=== PATIENT | female | born 1950 | race Caucasian/White ===

== ENCOUNTER 2022-03-07 13:06 | Inpatient (IN) | payer MEDICAID ==
[~2022-03-07] VITALS: Ht 160 cm; Wt 60.4 kg
[2022-03-07] MEDS ORDERED: ONDANSETRON HCL 4MG/2ML INJ IV ONE (14:00)
[2022-03-07] MEDS ORDERED: MORPHINE SULFATE 4 MG/ML CPJ (NOT FOR IM USE) IV ONE (14:00)
[2022-03-07 14:23] LABS: HEMATOCRIT. 45.2 % (36.0-48.0); HEMOGLOBIN. 15.6 g/dL (12.0-16.0); MEAN CORPUSCULAR HEMOGLOBIN 32.4 pg (28.0-32.0); MEAN CORPUSCULAR VOLUME 94.1 fL (81.0-99.0); MEAN PLATELET VOLUME 9.1 fl (7.4-10.4); PLATELET 216 x1000/uL (130-400); RED BLOOD CELL COUNT 4.81 mill/uL (4.2-5.4); RED CELL DISTRIBUTION WIDTH 13.2 % (11.6-14.6)
[2022-03-07 14:36] LABS: CHLORIDE 81 mEq/L (98-107)
[2022-03-07 15:03] LABS: PLATELET ESTIMATE NORMAL
[2022-03-07] MEDS ORDERED: CEFTRIAXONE 1 G PREMIX 50 ML IV ONE (17:45)
[2022-03-07] MEDS ORDERED: DOCUSATE SODIUM 100MG CAPSULE PO PRN (19:15)
[2022-03-07] MEDS ORDERED: LORAZEPAM 0.5MG TABLET PO PRN (19:15)
[2022-03-07] MEDS ORDERED: ACETAMINOPHEN 325MG TABLET PO PRN ×2 (19:15)
[2022-03-07] MEDS ORDERED: CLONIDINE 0.1MG TABLET PO PRN (19:15)
[2022-03-07] MEDS ORDERED: IPRATROPIUM/ALBUTEROL 0.5-3(2.5)MG/3ML NEB HHN PRN (19:15)
[2022-03-07] MEDS ORDERED: NOREPINEPHRINE 8 MG in DEXT 5% WATER 242 ML IV PRN (19:15)
[2022-03-07 20:03] LABS: BG BASE EXCESS -15.7 mmol/L (-2.0-2.0); BG CARBOXYHEMOGLOBIN 0.8 % (0.5-1.5); BG DEOXYHEMOGLOBIN 5.5 % (0.0-5.0); BG FRACTION INSPIRED OXYGEN 21; BG HCO3 ACT 10.5 mmol/L (22.0-26.0); BG METHEMOGLOBIN 0.2 % (0.0-1.5); BG OXYGEN SATURATION 94.4 % (92.0-98.5); BG OXYHEMOGLOBIN 93.5 % (94.0-97.0); BG PCO2 27.1 mmHg (35.0-45.0); BG PH 7.208 (7.350-7.450); BG PO2 80.9 mmHg (75.0-100.0); BG SAMPLE SITE RIGHT RADIAL; BG TOTAL HEMOGLOBIN 14.5 g/dL (12.0-18.0); BG VENT MODE ROOM AIR
[2022-03-07] MEDS ORDERED: SODIUM BICARBONATE 8.4% 1 MEQ/ML 50ML SYR IV NR (20:45)
[2022-03-07 21:03] VITALS: BP 88/44
[2022-03-07] MEDS ORDERED: SODIUM BICARBONATE 150 MEQ in DEXTROSE 5% WATER 1,000 ML IV NR (21:45)
[2022-03-07] MEDS: ONDANSETRON HCL 4MG/2ML INJ IV PRN (22:30)
[2022-03-07] MEDS: HYDROCODONE/ACETAMINOPHEN 5/325MG TABLET PO PRN (22:30)
[2022-03-08] VITALS (61 sets, daily range): BP systolic 57–122; BP diastolic 30–92
[2022-03-08] MEDS ORDERED: losartan (02:11)
[2022-03-08] MEDS: HYDROCODONE/ACETAMINOPHEN 5/325MG TABLET PO PRN (03:53)
[2022-03-08] MEDS ORDERED: SODIUM CHLORIDE 0.9% 250 ML IV NR (04:30)
[2022-03-08] MEDS ORDERED: NOREPINEPHRINE 8 MG in DEXT 5% WATER 242 ML IV PRN (08:00)
[2022-03-08 09:47] LABS: HEMATOCRIT. 42.1 % (36.0-48.0); HEMOGLOBIN. 14.4 g/dL (12.0-16.0); MEAN CORPUSCULAR HEMOGLOBIN 32.1 pg (28.0-32.0); MEAN PLATELET VOLUME 9.4 fl (7.4-10.4); PLATELET 183 x1000/uL (130-400); RED BLOOD CELL COUNT 4.47 mill/uL (4.2-5.4); RED CELL DISTRIBUTION WIDTH 13.1 % (11.6-14.6)
[2022-03-08] MEDS ORDERED: CEFTRIAXONE 1 G PREMIX 50 ML IV SCH (10:00)
[2022-03-08] MEDS ORDERED: NOREPINEPHRINE 32 MG in DEXT 5% WATER 242 ML IV PRN (10:51)
[2022-03-08] MEDS: PIPERACILLIN/TAZOBACTAM 3.375 G in DEXTROSE 5% WATER 50 ML IV SCH (17:31)
[2022-03-08 17:50] LABS: CHLORIDE 85 mEq/L (98-107)
[2022-03-08] MEDS ORDERED: CEFTRIAXONE 1,000 MG in DEXTROSE 5% WATER 50 ML IV SCH (18:00)
[2022-03-08] MEDS ORDERED: SODIUM BICARBONATE 8.4% 1 MEQ/ML 50ML SYR IV NR (18:30)
[2022-03-08] MEDS: NOREPINEPHRINE 32 MG in DEXTROSE 5% WATER 250 ML IV PRN (21:09)
[2022-03-08] MEDS: SODIUM BICARBONATE 150 MEQ in DEXTROSE 5% WATER 1,000 ML IV SCH ×2 (21:09→23:21)
[2022-03-08 23:10] LABS: PLATELET ESTIMATE NORMAL
[2022-03-09] VITALS (97 sets, daily range): BP systolic 75–148; BP diastolic 38–116
[2022-03-09] MEDS: NOREPINEPHRINE 32 MG in DEXTROSE 5% WATER 250 ML IV PRN ×2 (05:55→20:00)
[2022-03-09 06:26] LABS: HEMATOCRIT. 36.6 % (36.0-48.0); MEAN CORPUSCULAR HEMOGLOBIN 32.2 pg (28.0-32.0); MEAN CORPUSCULAR VOLUME 90.6 fL (81.0-99.0); MEAN PLATELET VOLUME 9.4 fl (7.4-10.4); PLATELET 86 x1000/uL (130-400); RED BLOOD CELL COUNT 4.04 mill/uL (4.2-5.4); RED CELL DISTRIBUTION WIDTH 12.8 % (11.6-14.6)
[2022-03-09 07:05] LABS: CHLORIDE 77 mEq/L (98-107)
[2022-03-09 07:25] LABS: CREATINE KINASE 384 IU/L (26-192); PHOSPHORUS 5.8 mg/dL (2.5-4.9)
[2022-03-09] MEDS ORDERED: KCL 20MEQ/100ML PREMIX 100 ML IV NR ×2 (08:00→13:00)
[2022-03-09] MEDS ORDERED: SODIUM CHLORIDE 0.9% 1,000 ML IV NR (08:12)
[2022-03-09] MEDS: PIPERACILLIN/TAZOBACTAM 3.375 G in DEXTROSE 5% WATER 50 ML IV SCH ×2 (08:26→19:59)
[2022-03-09 11:12] LABS: INR 1.1; PARTIAL THROMBOPLASTIN TIME 33.5 sec (23.4-31.0); PROTHROMBIN TIME 11.4 sec (9.6-11.0)
[2022-03-09] MEDS ORDERED: LIDOCAINE HCL 1% 30ML VIAL (10MG/ML) ONE (12:48)
[2022-03-09 13:00] LABS: NUCLEATED RED BLOOD CELLS 1 /100 WBC; PLATELET ESTIMATE DECREASED
[2022-03-09] MEDS ORDERED: DIATR MEGLU/DIATRIZOATE SOLN 120ML ONE (14:11)
[2022-03-09 15:20] LABS: CLARITY URINE CLOUDY (CLEAR); COLOR URINE YELLOW (YELLOW); KETONES URINE NEGATIVE (NEGATIVE); LEUKOCYTE ESTERASE URINE NEGATIVE (NEGATIVE); NITRITE URINE NEGATIVE (NEGATIVE); OCCULT BLOOD URINE 2+ (NEGATIVE); PROTEIN URINE 2+ (NEGATIVE); SPECIFIC GRAVITY URINE 1.016 (1.005-1.030); UROBILINOGEN URINE 0.2 E.U./dL (0.2-1.0)
[2022-03-09 17:40] LABS: HEPATITIS B SURFACE ANTIGEN NEGATIVE
[2022-03-09] MEDS: ONDANSETRON HCL 4MG/2ML INJ IV PRN (20:00)
[2022-03-10] VITALS (92 sets, daily range): BP systolic 75–143; BP diastolic 33–78
[2022-03-10] MEDS: ONDANSETRON HCL 4MG/2ML INJ IV PRN ×3 (02:00→17:00)
[2022-03-10] MEDS: PIPERACILLIN/TAZOBACTAM 3.375 G in DEXTROSE 5% WATER 50 ML IV SCH (08:50)
[2022-03-10 11:19] LABS: PHOSPHORUS 5.9 mg/dL (2.5-4.9)
[2022-03-10 11:44] LABS: HEMATOCRIT. 35.7 % (36.0-48.0); HEMOGLOBIN. 12.4 g/dL (12.0-16.0); MEAN CORPUSCULAR HEMOGLOBIN 31.7 pg (28.0-32.0); MEAN CORPUSCULAR VOLUME 91.5 fL (81.0-99.0); MEAN PLATELET VOLUME 9.5 fl (7.4-10.4); RED CELL DISTRIBUTION WIDTH 12.7 % (11.6-14.6)
[2022-03-10 11:56] LABS: PLATELET 37 x1000/uL (130-400)
[2022-03-10 12:32] LABS: PLATELET ESTIMATE MARKEDLY DECREASED
[2022-03-10] MEDS: PANTOPRAZOLE SODIUM 40 MG/VIAL IV SCH (14:37)
[2022-03-10 16:44] LABS: FIBRINOGEN > 850 mg/dL (200-400); TOTAL IRON BINDING CAPACITY 246 ug/dL (250-450)
[2022-03-10] MEDS: NOREPINEPHRINE 32 MG in DEXTROSE 5% WATER 250 ML IV PRN (16:57)
[2022-03-10 17:24] LABS: FERRITIN 1267 ng/mL (10-291)
[2022-03-10 17:40] LABS: VITAMIN B12 SERUM > 2000.0 pg/mL (211-911)
[2022-03-10 18:08] LABS: FOLIC ACID (FOLATE) SERUM > 20.00 ng/mL (>5.38)
[2022-03-10] MEDS ORDERED: CEFTRIAXONE 2 G PREMIX 50 ML IV SCH (18:15)
[2022-03-10] MEDS ORDERED: CEFTRIAXONE 2 G in DEXTROSE 5% WATER 50 ML IV SCH (19:30)
[2022-03-11] VITALS (99 sets, daily range): BP systolic 69–173; BP diastolic 34–100
[2022-03-11] MEDS: ONDANSETRON HCL 4MG/2ML INJ IV PRN (05:13)
[2022-03-11 06:45] LABS: HEMATOCRIT. 34.9 % (36.0-48.0); HEMOGLOBIN. 12.1 g/dL (12.0-16.0); MEAN CORPUSCULAR HEMOGLOBIN 31.9 pg (28.0-32.0); MEAN CORPUSCULAR VOLUME 92.1 fL (81.0-99.0); MEAN PLATELET VOLUME 7.9 fl (7.4-10.4); RED BLOOD CELL COUNT 3.79 mill/uL (4.2-5.4); RED CELL DISTRIBUTION WIDTH 13.4 % (11.6-14.6)
[2022-03-11 07:00] LABS: PLATELET 15 x1000/uL (130-400)
[2022-03-11 07:02] LABS: PHOSPHORUS 7.5 mg/dL (2.5-4.9)
[2022-03-11] MEDS ORDERED: LEVOFLOXACIN 500MG PREMIX 100 ML IV SCH ×2 (08:45→11:00)
[2022-03-11 09:22] LABS: PLATELET ESTIMATE MARKEDLY DECREASED
[2022-03-11] MEDS: PANTOPRAZOLE SODIUM 40 MG/VIAL IV SCH (09:36)
[2022-03-11] MEDS ORDERED: METOCLOPRAMIDE HCL 10MG/2ML VIAL IV PRN (10:45)
[2022-03-11] MEDS ORDERED: NALOXONE HCL 0.4MG/ML VIAL IV PRN (11:00)
[2022-03-11] MEDS ORDERED: VANCOMYCIN 1.25GM PMX (XELLIA) 250 ML IV NR (14:00)
[2022-03-11] MEDS: FAMOTIDINE 20MG/2ML VIAL IV SCH (21:13)
[2022-03-12] VITALS (88 sets, daily range): BP systolic 69–128; BP diastolic 36–89
[2022-03-12 00:17] LABS: HEMATOCRIT. 28.9 % (36.0-48.0); HEMOGLOBIN. 10.2 g/dL (12.0-16.0); MEAN CORPUSCULAR HEMOGLOBIN 32.2 pg (28.0-32.0); MEAN CORPUSCULAR VOLUME 91.4 fL (81.0-99.0); MEAN PLATELET VOLUME 7.7 fl (7.4-10.4); RED BLOOD CELL COUNT 3.16 mill/uL (4.2-5.4); RED CELL DISTRIBUTION WIDTH 13.1 % (11.6-14.6)
[2022-03-12 00:29] LABS: PLATELET 35 x1000/uL (130-400)
[2022-03-12 05:46] LABS: HEMATOCRIT. 30.5 % (36.0-48.0); HEMOGLOBIN. 10.6 g/dL (12.0-16.0); MEAN CORPUSCULAR VOLUME 91.9 fL (81.0-99.0); RED BLOOD CELL COUNT 3.32 mill/uL (4.2-5.4); RED CELL DISTRIBUTION WIDTH 13.3 % (11.6-14.6)
[2022-03-12 05:54] LABS: PLATELET 37 x1000/uL (130-400)
[2022-03-12] MEDS ORDERED: BUPIVACAINE HCL/PF 0.5% (5MG/ML) 30ML ONE (07:02)
[2022-03-12] MEDS ORDERED: LIDOCAINE HCL 1%/EPI 1:200,000 30 ML VIAL ONE (07:02)
[2022-03-12] MEDS ORDERED: CEFAZOLIN SODIUM 1000MG/VIAL ONE ×2 (07:30)
[2022-03-12] MEDS ORDERED: ETOMIDATE 2MG/ML 10ML VIAL IV ONE (07:34)
[2022-03-12] MEDS ORDERED: LIDOCAINE HCL 1% 10 MG/ML 10ML VIAL ONE (07:39)
[2022-03-12] MEDS ORDERED: ROCURONIUM BROMIDE 10MG/ML VIAL 5ML IV ONE ×2 (07:40→09:00)
[2022-03-12] MEDS ORDERED: POLYMYXIN B SULFATE 500000 UNITS/VIAL ONE (08:42)
[2022-03-12] MEDS ORDERED: ALBUMIN HUMAN 25GM/100ML (25%) IV ONE (08:48)
[2022-03-12] MEDS ORDERED: FENTANYL CITRATE/PF 50MCG/ML 2ML VIAL ONE (08:53)
[2022-03-12] MEDS ORDERED: MIDAZOLAM HCL 2 MG/2 ML VIAL ONE (08:53)
[2022-03-12] MEDS ORDERED: HYDROMORPHONE HCL/PF 2MG/ML CPJ IV PRN (09:45)
[2022-03-12] MEDS ORDERED: PROPOFOL 10MG/ML 100ML 100 ML IV PRN (09:45)
[2022-03-12 10:22] LABS: NUCLEATED RED BLOOD CELLS 1 /100 WBC; PLATELET ESTIMATE MARKEDLY DECREASED
[2022-03-12 10:26] LABS: BG BASE EXCESS -5.7 mmol/L (-2.0-2.0); BG CARBOXYHEMOGLOBIN 0.8 % (0.5-1.5); BG DEOXYHEMOGLOBIN 9.9 % (0.0-5.0); BG FRACTION INSPIRED OXYGEN 100; BG HCO3 ACT 19.9 mmol/L (22.0-26.0); BG METHEMOGLOBIN 0.3 % (0.0-1.5); BG PCO2 39.2 mmHg (35.0-45.0); BG PH 7.323 (7.350-7.450); BG PO2 64.6 mmHg (75.0-100.0); BG SAMPLE SITE LEFT RADIAL; BG TOTAL HEMOGLOBIN 10.6 g/dL (12.0-18.0); BG TOTAL RESPIRATORY RATE 12 b/min; BG VENT MODE VENT - AC
[2022-03-12] MEDS ORDERED: KCL 20MEQ/100ML PREMIX 100 ML IV NR (11:00)
[2022-03-12] MEDS: NOREPINEPHRINE 32 MG in DEXTROSE 5% WATER 250 ML IV PRN ×2 (12:40→16:37)
[2022-03-12] MEDS: IPRATROPIUM/ALBUTEROL 0.5-3(2.5)MG/3ML NEB HHN SCH ×2 (12:46→20:49)
[2022-03-12 13:21] LABS: PLATELET ESTIMATE MARKEDLY DECREASED
[2022-03-12] MEDS: PHENYLEPHRINE 100 MG in DEXT 5% WATER 240 ML IV PRN (14:35)
[2022-03-12] MEDS: FENTANYL 2500MCG/250ML PMX 250 ML IV PRN (14:36)
[2022-03-12 15:07] LABS: BG BASE EXCESS -3.2 mmol/L (-2.0-2.0); BG CARBOXYHEMOGLOBIN 0.3 % (0.5-1.5); BG DEOXYHEMOGLOBIN 0.6 % (0.0-5.0); BG FRACTION INSPIRED OXYGEN 70; BG HCO3 ACT 22.5 mmol/L (22.0-26.0); BG METHEMOGLOBIN 0.3 % (0.0-1.5); BG OXYGEN SATURATION 99.4 % (92.0-98.5); BG OXYHEMOGLOBIN 98.8 % (94.0-97.0); BG PCO2 43.1 mmHg (35.0-45.0); BG PH 7.336 (7.350-7.450); BG PO2 313.7 mmHg (75.0-100.0); BG SAMPLE SITE LEFT RADIAL; BG TOTAL HEMOGLOBIN 10.6 g/dL (12.0-18.0); BG TOTAL RESPIRATORY RATE 12 b/min; BG VENT MODE VENT - AC
[2022-03-12] MEDS ORDERED: DILTIAZEM HCL 5MG/ML 5ML VIAL IV NR (16:00)
[2022-03-12] MEDS ORDERED: SODIUM CHLORIDE 0.9% 500 ML IV ONE (16:00)
[2022-03-12] MEDS: PROPOFOL 10MG/ML 100ML 100 ML IV PRN (17:24)
[2022-03-12] MEDS: FAMOTIDINE 20MG/2ML VIAL IV SCH (20:32)
[2022-03-12 21:16] LABS: HEMATOCRIT 26.6 % (36.0-48.0); HEMOGLOBIN 9.3 g/dL (12.0-16.0)
[2022-03-13] VITALS (110 sets, daily range): BP systolic 67–157; BP diastolic 22–122
[2022-03-13] MEDS: PHENYLEPHRINE 100 MG in DEXT 5% WATER 240 ML IV PRN ×3 (00:02→17:17)
[2022-03-13] MEDS: IPRATROPIUM/ALBUTEROL 0.5-3(2.5)MG/3ML NEB HHN SCH ×4 (00:56→20:53)
[2022-03-13] MEDS: PROPOFOL 10MG/ML 100ML 100 ML IV PRN ×2 (01:32→06:41)
[2022-03-13 04:59] LABS: HEMATOCRIT. 26.8 % (36.0-48.0); HEMOGLOBIN. 9.3 g/dL (12.0-16.0); MEAN CORPUSCULAR HEMOGLOBIN 32.3 pg (28.0-32.0); MEAN CORPUSCULAR VOLUME 93.4 fL (81.0-99.0); MEAN PLATELET VOLUME 9.1 fl (7.4-10.4); PLATELET 79 x1000/uL (130-400); RED BLOOD CELL COUNT 2.87 mill/uL (4.2-5.4)
[2022-03-13 05:26] LABS: CHLORIDE 97 mEq/L (98-107); CREATINE KINASE 112 IU/L (26-192)
[2022-03-13 05:32] LABS: PHOSPHORUS 10.6 mg/dL (2.5-4.9)
[2022-03-13 09:29] LABS: BG BASE EXCESS -2.7 mmol/L (-2.0-2.0); BG CARBOXYHEMOGLOBIN 0.3 % (0.5-1.5); BG DEOXYHEMOGLOBIN 1.8 % (0.0-5.0); BG FRACTION INSPIRED OXYGEN 40; BG HCO3 ACT 21.8 mmol/L (22.0-26.0); BG METHEMOGLOBIN 0.3 % (0.0-1.5); BG OXYGEN SATURATION 98.2 % (92.0-98.5); BG OXYHEMOGLOBIN 97.6 % (94.0-97.0); BG PCO2 36.8 mmHg (35.0-45.0); BG PH 7.391 (7.350-7.450); BG PO2 142.7 mmHg (75.0-100.0); BG SAMPLE SITE RIGHT BRACHIAL; BG TOTAL HEMOGLOBIN 9.4 g/dL (12.0-18.0); BG VENT MODE VENT - AC
[2022-03-13] MEDS: LEVOFLOXACIN 250MG PREMIX 50 ML IV SCH (11:28)
[2022-03-13] MEDS ORDERED: ACETAMINOPHEN 325MG SUPP PR PRN (11:30)
[2022-03-13] MEDS ORDERED: LORAZEPAM 2MG/ML CPJ IV PRN (11:30)
[2022-03-13 13:16] LABS: PLATELET ESTIMATE DECREASED
[2022-03-13] MEDS: NOREPINEPHRINE 32 MG in DEXTROSE 5% WATER 250 ML IV PRN (17:20)
[2022-03-13] MEDS: FAMOTIDINE 20MG/2ML VIAL IV SCH (21:04)
[2022-03-14] VITALS (98 sets, daily range): BP systolic 60–259; BP diastolic 31–206
[2022-03-14] MEDS: IPRATROPIUM/ALBUTEROL 0.5-3(2.5)MG/3ML NEB HHN SCH ×4 (00:42→20:51)
[2022-03-14] MEDS: PHENYLEPHRINE 100 MG in DEXT 5% WATER 240 ML IV PRN ×2 (02:14→11:16)
[2022-03-14] MEDS: FENTANYL 2500MCG/250ML PMX 250 ML IV PRN (02:27)
[2022-03-14 04:40] LABS: HEMATOCRIT. 22.5 % (36.0-48.0); HEMOGLOBIN. 7.8 g/dL (12.0-16.0); MEAN CORPUSCULAR HEMOGLOBIN 32.4 pg (28.0-32.0); MEAN CORPUSCULAR VOLUME 93.1 fL (81.0-99.0); MEAN PLATELET VOLUME 8.7 fl (7.4-10.4); PLATELET 66 x1000/uL (130-400); RED BLOOD CELL COUNT 2.41 mill/uL (4.2-5.4); RED CELL DISTRIBUTION WIDTH 12.7 % (11.6-14.6)
[2022-03-14 05:10] LABS: CHLORIDE 100 mEq/L (98-107)
[2022-03-14 06:17] LABS: PHOSPHORUS 7.6 mg/dL (2.5-4.9)
[2022-03-14 08:00] LABS: BG BASE EXCESS -1.5 mmol/L (-2.0-2.0); BG CARBOXYHEMOGLOBIN 0.7 % (0.5-1.5); BG DEOXYHEMOGLOBIN 0.9 % (0.0-5.0); BG HCO3 ACT 21.8 mmol/L (22.0-26.0); BG OXYGEN SATURATION 99.1 % (92.0-98.5); BG OXYHEMOGLOBIN 98.4 % (94.0-97.0); BG PCO2 30.6 mmHg (35.0-45.0); BG PH 7.471 (7.350-7.450); BG PO2 188.9 mmHg (75.0-100.0); BG SAMPLE SITE RIGHT BRACHIAL; BG TOTAL HEMOGLOBIN 7.4 g/dL (12.0-18.0); BG VENT MODE VENT - AC
[2022-03-14] MEDS ORDERED: VANCOMYCIN 500MG PREMIX 100 ML IV NR (11:00)
[2022-03-14 11:04] LABS: PLATELET ESTIMATE DECREASED
[2022-03-14] MEDS: FAMOTIDINE 20MG/2ML VIAL IV SCH (20:56)
[2022-03-15] VITALS (91 sets, daily range): BP systolic 83–141; BP diastolic 34–109
[2022-03-15] MEDS: IPRATROPIUM/ALBUTEROL 0.5-3(2.5)MG/3ML NEB HHN SCH ×4 (02:03→20:12)
[2022-03-15 05:19] LABS: HEMATOCRIT. 22.1 % (36.0-48.0); HEMOGLOBIN. 7.6 g/dL (12.0-16.0); MEAN CORPUSCULAR VOLUME 93.1 fL (81.0-99.0); MEAN PLATELET VOLUME 8.6 fl (7.4-10.4); PLATELET 102 x1000/uL (130-400); RED BLOOD CELL COUNT 2.37 mill/uL (4.2-5.4); RED CELL DISTRIBUTION WIDTH 13.2 % (11.6-14.6)
[2022-03-15 05:38] LABS: PHOSPHORUS 7.2 mg/dL (2.5-4.9)
[2022-03-15 07:30] LABS: PLATELET ESTIMATE DECREASED
[2022-03-15] MEDS: LEVOFLOXACIN 250MG PREMIX 50 ML IV SCH (11:21)
[2022-03-15] MEDS ORDERED: VANCOMYCIN 500MG PREMIX 100 ML IV NR (15:00)
[2022-03-15] MEDS ORDERED: TOTAL PARENTERAL NUTRITION IV SCH (21:00)
[2022-03-15] MEDS: FAMOTIDINE 20MG/2ML VIAL IV SCH (21:22)
[2022-03-15] MEDS: PHENYLEPHRINE 100 MG in DEXT 5% WATER 240 ML IV PRN (22:20)
[2022-03-16] VITALS (78 sets, daily range): BP systolic 80–124; BP diastolic 46–85
[2022-03-16] MEDS: IPRATROPIUM/ALBUTEROL 0.5-3(2.5)MG/3ML NEB HHN SCH ×4 (00:52→20:38)
[2022-03-16 06:00] LABS: CHLORIDE 99 mEq/L (98-107)
[2022-03-16 06:06] LABS: HEMOGLOBIN. 7.2 g/dL (12.0-16.0); MEAN CORPUSCULAR HEMOGLOBIN 32.5 pg (28.0-32.0); MEAN CORPUSCULAR VOLUME 93.8 fL (81.0-99.0); MEAN PLATELET VOLUME 8.4 fl (7.4-10.4); PLATELET 105 x1000/uL (130-400); RED BLOOD CELL COUNT 2.23 mill/uL (4.2-5.4); RED CELL DISTRIBUTION WIDTH 12.9 % (11.6-14.6)
[2022-03-16 06:10] LABS: PHOSPHORUS 4.5 mg/dL (2.5-4.9)
[2022-03-16 06:33] LABS: HEMATOCRIT. 20.9 % (36.0-48.0)
[2022-03-16] MEDS ORDERED: MAGNESIUM 2 G PREMIX 50 ML IV NR (11:00)
[2022-03-16 12:44] LABS: PLATELET ESTIMATE SLIGHTLY DECREASED
[2022-03-16 14:25] LABS: BG BASE EXCESS 1.3 mmol/L (-2.0-2.0); BG DEOXYHEMOGLOBIN 1.9 % (0.0-5.0); BG FRACTION INSPIRED OXYGEN 35; BG HCO3 ACT 25.2 mmol/L (22.0-26.0); BG METHEMOGLOBIN 0.4 % (0.0-1.5); BG OXYGEN SATURATION 98.1 % (92.0-98.5); BG OXYHEMOGLOBIN 97.7 % (94.0-97.0); BG PCO2 36.6 mmHg (35.0-45.0); BG PH 7.455 (7.350-7.450); BG PO2 145.7 mmHg (75.0-100.0); BG SAMPLE SITE LEFT BRACHIAL; BG VENT MODE T PIECE
[2022-03-16] MEDS: MEROPENEM 1,000 MG in SODIUM CHLORIDE 0.9% 100 ML IV SCH (15:33)
[2022-03-16] MEDS: FAMOTIDINE 20MG/2ML VIAL IV SCH (20:22)
[2022-03-16] MEDS ORDERED: TOTAL PARENTERAL NUTRITION 1,440 ML IV SCH (21:00)
[2022-03-17] VITALS (54 sets, daily range): BP systolic 55–142; BP diastolic 27–79
[2022-03-17] MEDS: IPRATROPIUM/ALBUTEROL 0.5-3(2.5)MG/3ML NEB HHN SCH ×3 (01:04→21:30)
[2022-03-17 04:57] LABS: HEMATOCRIT. 26.9 % (36.0-48.0); HEMOGLOBIN. 9.4 g/dL (12.0-16.0); MEAN CORPUSCULAR HEMOGLOBIN 32.2 pg (28.0-32.0); MEAN CORPUSCULAR VOLUME 91.9 fL (81.0-99.0); MEAN PLATELET VOLUME 7.9 fl (7.4-10.4); PLATELET 123 x1000/uL (130-400); RED BLOOD CELL COUNT 2.92 mill/uL (4.2-5.4); RED CELL DISTRIBUTION WIDTH 13.5 % (11.6-14.6)
[2022-03-17 05:05] LABS: CHLORIDE 102 mEq/L (98-107)
[2022-03-17 05:13] LABS: PHOSPHORUS 3.4 mg/dL (2.5-4.9)
[2022-03-17 11:07] LABS: PLATELET ESTIMATE SLIGHTLY DECREASED
[2022-03-17] MEDS: MEROPENEM 1,000 MG in SODIUM CHLORIDE 0.9% 100 ML IV SCH (15:41)
[2022-03-17] MEDS ORDERED: VANCOMYCIN 750MG PREMIX 150 ML IV NR (18:00)
[2022-03-17] MEDS: FAMOTIDINE 20MG/2ML VIAL IV SCH (20:03)
[2022-03-17] MEDS ORDERED: TOTAL PARENTERAL NUTRITION IV SCH (21:00)
[2022-03-17 23:58] LABS: HEMOGLOBIN 9.6 g/dL (12.0-16.0)
[2022-03-18] VITALS (40 sets, daily range): BP systolic 82–125; BP diastolic 44–73
[2022-03-18] MEDS: IPRATROPIUM/ALBUTEROL 0.5-3(2.5)MG/3ML NEB HHN SCH ×4 (01:51→21:33)
[2022-03-18 04:44] LABS: CHLORIDE 105 mEq/L (98-107)
[2022-03-18 04:55] LABS: HEMATOCRIT. 26.6 % (36.0-48.0); HEMOGLOBIN. 9.1 g/dL (12.0-16.0); MEAN CORPUSCULAR HEMOGLOBIN 31.9 pg (28.0-32.0); MEAN CORPUSCULAR VOLUME 93.1 fL (81.0-99.0); MEAN PLATELET VOLUME 7.8 fl (7.4-10.4); PLATELET 122 x1000/uL (130-400); RED BLOOD CELL COUNT 2.86 mill/uL (4.2-5.4)
[2022-03-18 11:05] LABS: NUCLEATED RED BLOOD CELLS 1 /100 WBC; PLATELET ESTIMATE SLIGHTLY DECREASED
[2022-03-18] MEDS: MEROPENEM 1,000 MG in SODIUM CHLORIDE 0.9% 100 ML IV SCH (16:34)
[2022-03-18] MEDS: METOCLOPRAMIDE HCL 10MG/2ML VIAL IV SCH ×2 (17:54→23:32)
[2022-03-18] MEDS: BLOOD SUGAR DIAGNOSTIC STRIP TEST SCH ×2 (17:55→23:45)
[2022-03-18] MEDS: FAMOTIDINE 20MG/2ML VIAL IV SCH (20:45)
[2022-03-18] MEDS: TOTAL PARENTERAL NUTRITION IV SCH (20:48)
[2022-03-19] VITALS (22 sets, daily range): BP systolic 90–118; BP diastolic 28–74
[2022-03-19] MEDS: IPRATROPIUM/ALBUTEROL 0.5-3(2.5)MG/3ML NEB HHN SCH ×4 (00:53→20:33)
[2022-03-19] MEDS: METOCLOPRAMIDE HCL 10MG/2ML VIAL IV SCH ×3 (05:26→17:41)
[2022-03-19 05:28] LABS: HEMOGLOBIN. 8.5 g/dL (12.0-16.0); MEAN CORPUSCULAR HEMOGLOBIN 31.6 pg (28.0-32.0); MEAN CORPUSCULAR VOLUME 93.1 fL (81.0-99.0); MEAN PLATELET VOLUME 7.4 fl (7.4-10.4); PLATELET 126 x1000/uL (130-400); RED BLOOD CELL COUNT 2.68 mill/uL (4.2-5.4)
[2022-03-19] MEDS: BLOOD SUGAR DIAGNOSTIC STRIP TEST SCH ×3 (05:53→17:41)
[2022-03-19 05:55] LABS: PHOSPHORUS 1.7 mg/dL (2.5-4.9)
[2022-03-19] MEDS: BISACODYL 10MG SUPP PR SCH (09:04)
[2022-03-19] MEDS ORDERED: MAGNESIUM 2 G PREMIX 50 ML IV ONE (11:00)
[2022-03-19 11:53] LABS: PLATELET ESTIMATE SLIGHTLY DECREASED
[2022-03-19] MEDS ORDERED: SODIUM PHOS,M-BASIC-D-BASIC 20 MM in DEXT 5% WATER 250 ML IV SCH (12:00)
[2022-03-19] MEDS ORDERED: VANCOMYCIN 750MG PREMIX 150 ML IV NR (12:00)
[2022-03-19] MEDS: MEROPENEM 1,000 MG in SODIUM CHLORIDE 0.9% 100 ML IV SCH (16:05)
[2022-03-19] MEDS ORDERED: TOTAL PARENTERAL NUTRITION IV SCH (21:00)
[2022-03-19] MEDS: TOTAL PARENTERAL NUTRITION IV SCH (21:00)
[2022-03-19] MEDS: FAMOTIDINE 20MG/2ML VIAL IV SCH (21:16)
[2022-03-20] VITALS: BP 116/54
[2022-03-20] MEDS: BLOOD SUGAR DIAGNOSTIC STRIP TEST SCH ×4 (00:41→17:35)
[2022-03-20] MEDS: METOCLOPRAMIDE HCL 10MG/2ML VIAL IV SCH ×4 (00:54→17:31)
[2022-03-20] MEDS: IPRATROPIUM/ALBUTEROL 0.5-3(2.5)MG/3ML NEB HHN SCH ×4 (01:27→21:25)
[2022-03-20 04:00] VITALS: BP 96/51
[2022-03-20 08:00] VITALS: BP 115/65
[2022-03-20] MEDS: BISACODYL 10MG SUPP PR SCH (09:00)
[2022-03-20 10:30] LABS: PHOSPHORUS 5.7 mg/dL (2.5-4.9)
[2022-03-20 12:00] VITALS: BP 121/66
[2022-03-20 16:00] VITALS: BP 116/61
[2022-03-20] MEDS: MEROPENEM 1,000 MG in SODIUM CHLORIDE 0.9% 100 ML IV SCH (16:06)
[2022-03-20 20:00] VITALS: BP 107/56
[2022-03-20] MEDS: FAMOTIDINE 20MG/2ML VIAL IV SCH (20:51)
[2022-03-20] MEDS ORDERED: TOTAL PARENTERAL NUTRITION IV SCH (21:00)
[2022-03-20] MEDS ORDERED: FAT EMULSIONS 500 ML IV SCH (21:00)
[2022-03-21] VITALS: BP 98/57
[2022-03-21] MEDS ORDERED: VANCOMYCIN 750MG PREMIX 150 ML IV SCH
[2022-03-21] MEDS: BLOOD SUGAR DIAGNOSTIC STRIP TEST SCH ×5 (00:05→23:10)
[2022-03-21] MEDS: METOCLOPRAMIDE HCL 10MG/2ML VIAL IV SCH ×5 (00:06→23:11)
[2022-03-21] MEDS: IPRATROPIUM/ALBUTEROL 0.5-3(2.5)MG/3ML NEB HHN SCH ×4 (02:03→21:50)
[2022-03-21 04:00] VITALS: BP 109/51
[2022-03-21 07:40] LABS: HEMATOCRIT. 23.4 % (36.0-48.0); MEAN CORPUSCULAR VOLUME 93.6 fL (81.0-99.0); MEAN PLATELET VOLUME 7.6 fl (7.4-10.4); PLATELET 108 x1000/uL (130-400); RED CELL DISTRIBUTION WIDTH 13.8 % (11.6-14.6)
[2022-03-21 08:00] VITALS: BP 106/47
[2022-03-21] MEDS: BISACODYL 10MG SUPP PR SCH (09:11)
[2022-03-21 10:53] LABS: PLATELET ESTIMATE DECREASED
[2022-03-21 12:00] VITALS: BP 102/60
[2022-03-21 16:00] VITALS: BP 112/54
[2022-03-21] MEDS ORDERED: POTASSIUM CHLORIDE 20MEQ TABLET SR PO NR (16:00)
[2022-03-21] MEDS: MEROPENEM 1,000 MG in SODIUM CHLORIDE 0.9% 100 ML IV SCH (16:35)
[2022-03-21 20:00] VITALS: BP 102/54
[2022-03-21] MEDS: FAMOTIDINE 20MG/2ML VIAL IV SCH (20:29)
[2022-03-22] VITALS: BP 107/60
[2022-03-22] MEDS ORDERED: VANCOMYCIN 750MG PREMIX 150 ML IV SCH
[2022-03-22] MEDS: IPRATROPIUM/ALBUTEROL 0.5-3(2.5)MG/3ML NEB HHN SCH ×4 (02:39→20:02)
[2022-03-22 04:00] VITALS: BP 129/73
[2022-03-22] MEDS: BLOOD SUGAR DIAGNOSTIC STRIP TEST SCH ×3 (05:15→17:50)
[2022-03-22] MEDS: METOCLOPRAMIDE HCL 10MG/2ML VIAL IV SCH ×4 (05:16→23:55)
[2022-03-22 08:00] VITALS: BP 115/55
[2022-03-22 08:06] LABS: HEMATOCRIT. 24.8 % (36.0-48.0); HEMOGLOBIN. 8.4 g/dL (12.0-16.0); MEAN CORPUSCULAR HEMOGLOBIN 31.5 pg (28.0-32.0); MEAN CORPUSCULAR VOLUME 92.4 fL (81.0-99.0); MEAN PLATELET VOLUME 7.6 fl (7.4-10.4); PLATELET 127 x1000/uL (130-400); RED BLOOD CELL COUNT 2.68 mill/uL (4.2-5.4); RED CELL DISTRIBUTION WIDTH 13.6 % (11.6-14.6)
[2022-03-22 08:22] LABS: CHLORIDE 105 mEq/L (98-107)
[2022-03-22 08:52] LABS: PHOSPHORUS 3.7 mg/dL (2.5-4.9)
[2022-03-22] MEDS: BISACODYL 10MG SUPP PR SCH (09:24)
[2022-03-22 11:33] LABS: PLATELET ESTIMATE SLIGHTLY DECREASED
[2022-03-22 12:00] VITALS: BP 108/60
[2022-03-22 16:00] VITALS: BP 100/57
[2022-03-22] MEDS: MEROPENEM 1,000 MG in SODIUM CHLORIDE 0.9% 100 ML IV SCH (16:45)
[2022-03-22 20:00] VITALS: BP 101/51
[2022-03-22] MEDS: FAMOTIDINE 20MG/2ML VIAL IV SCH (22:30)
[2022-03-23] VITALS: BP 113/58
[2022-03-23] MEDS: BLOOD SUGAR DIAGNOSTIC STRIP TEST SCH ×4 (00:02→17:24)
[2022-03-23] MEDS: IPRATROPIUM/ALBUTEROL 0.5-3(2.5)MG/3ML NEB HHN SCH ×4 (01:22→22:15)
[2022-03-23 04:00] VITALS: BP 92/58
[2022-03-23] MEDS: METOCLOPRAMIDE HCL 10MG/2ML VIAL IV SCH ×3 (05:28→17:36)
[2022-03-23 08:00] VITALS: BP 109/55
[2022-03-23] MEDS: BISACODYL 10MG SUPP PR SCH (08:08)
[2022-03-23 08:52] LABS: HEMATOCRIT. 24.8 % (36.0-48.0); HEMOGLOBIN. 8.2 g/dL (12.0-16.0); MEAN CORPUSCULAR HEMOGLOBIN 31.6 pg (28.0-32.0); MEAN PLATELET VOLUME 7.7 fl (7.4-10.4); PLATELET 120 x1000/uL (130-400); RED BLOOD CELL COUNT 2.61 mill/uL (4.2-5.4); RED CELL DISTRIBUTION WIDTH 13.6 % (11.6-14.6)
[2022-03-23 09:03] LABS: CHLORIDE 106 mEq/L (98-107)
[2022-03-23 09:12] LABS: PHOSPHORUS 3.7 mg/dL (2.5-4.9)
[2022-03-23 12:00] VITALS: BP 103/58
[2022-03-23 12:58] LABS: PLATELET ESTIMATE DECREASED
[2022-03-23 16:00] VITALS: BP 108/84
[2022-03-23 20:00] VITALS: BP 107/55
[2022-03-23] MEDS: FAMOTIDINE 20MG TABLET PO SCH (21:04)
[2022-03-24] VITALS: BP 105/60
[2022-03-24] MEDS: BLOOD SUGAR DIAGNOSTIC STRIP TEST SCH ×4 (00:27→17:14)
[2022-03-24] MEDS: METOCLOPRAMIDE HCL 10MG/2ML VIAL IV SCH ×4 (00:27→17:16)
[2022-03-24] MEDS: IPRATROPIUM/ALBUTEROL 0.5-3(2.5)MG/3ML NEB HHN SCH ×5 (02:50→21:20)
[2022-03-24 04:00] VITALS: BP_SYST 104; BP_SYST 110; BP_DIAS 63; BP_DIAS 71
[2022-03-24 08:00] VITALS: BP_SYST 110; BP_SYST 122; BP_DIAS 63
[2022-03-24] MEDS: BISACODYL 10MG SUPP PR SCH (08:50)
[2022-03-24 12:00] VITALS: BP_SYST 115; BP_SYST 122; BP_DIAS 61; BP_DIAS 63
[2022-03-24 16:00] VITALS: BP 115/61
[2022-03-24] MEDS: FAMOTIDINE 20MG TABLET PO SCH (21:07)
[2022-03-25] VITALS: BP 108/63
[2022-03-25] MEDS: BLOOD SUGAR DIAGNOSTIC STRIP TEST SCH ×4 (00:10→17:03)
[2022-03-25] MEDS: METOCLOPRAMIDE HCL 10MG/2ML VIAL IV SCH ×4 (00:11→17:03)
[2022-03-25] MEDS: IPRATROPIUM/ALBUTEROL 0.5-3(2.5)MG/3ML NEB HHN SCH ×4 (02:22→16:26)
[2022-03-25 04:00] VITALS: BP 132/69
[2022-03-25 07:40] LABS: BASOPHILS % 0.8 % (0.0-2.0); EOSINOPHILS % 2.2 % (0.0-5.0); HEMATOCRIT. 24.8 % (36.0-48.0); HEMOGLOBIN. 8.2 g/dL (12.0-16.0); LYMPHOCYTES % 18.3 % (20.0-50.0); MEAN CORPUSCULAR HEMOGLOBIN 30.9 pg (28.0-32.0); MEAN CORPUSCULAR VOLUME 93.9 fL (81.0-99.0); MONOCYTES % 14.8 % (2.0-8.0); NEUTROPHILS % 63.9 % (40.0-76.0); PLATELET 160 x1000/uL (130-400); RED BLOOD CELL COUNT 2.64 mill/uL (4.2-5.4)
[2022-03-25 08:00] VITALS: BP 124/61
[2022-03-25 08:01] LABS: CHLORIDE 109 mEq/L (98-107)
[2022-03-25 08:05] LABS: PHOSPHORUS 3.4 mg/dL (2.5-4.9)
[2022-03-25] MEDS: BISACODYL 10MG SUPP PR SCH (09:00)
[2022-03-25] MEDS ORDERED: MAGNESIUM 4 G PREMIX 100 ML IV ONE (11:00)
[2022-03-25 12:00] VITALS: BP 120/59
[2022-03-25 16:00] VITALS: BP 122/54
[2022-03-25 17:27] VITALS: BP 122/54
== END 2022-03-25 20:45 | disposition home or self-care (01) | DRG 710 ==
LOC: ER 13:45 → EDBEDREQSVC 17:53 → EDBEDREQTM 17:53 → EDBEDREQ 17:53 → 6EST 22:03 → CVICU 03-08 08:25 → MICUSO 03-12 02:40 → MICUNO 03-13 18:11 → MICUSO 03-18 19:43 → 7EST 03-19 10:32
PROVIDERS: ADMIT Family Medicine Adult Medicine; ATTEND Family Medicine Adult Medicine
PROC: 02H633Z Insertion of Infusion Device into Right Atrium, Percutaneous Approach (ICD-10-PCS; 2022-03-08)
PROC: B548ZZA Ultrasonography of Superior Vena Cava, Guidance (ICD-10-PCS; 2022-03-08)
PROC: 02H633Z Insertion of Infusion Device into Right Atrium, Percutaneous Approach (ICD-10-PCS; 2022-03-09)
PROC: B548ZZA Ultrasonography of Superior Vena Cava, Guidance (ICD-10-PCS; 2022-03-09)
PROC: 5A1D70Z Performance of Urinary Filtration, Intermittent, Less than 6 Hours Per Day (ICD-10-PCS; 2022-03-09)
PROC: 30233N1 Transfusion of Nonautologous Red Blood Cells into Peripheral Vein, Percutaneous Approach (ICD-10-PCS; 2022-03-11)
PROC: 5A1D70Z Performance of Urinary Filtration, Intermittent, Less than 6 Hours Per Day (ICD-10-PCS; 2022-03-11)
PROC: 0DT80ZZ Resection of Small Intestine, Open Approach (ICD-10-PCS; principal; 2022-03-12)
PROC: 5A1955Z Respiratory Ventilation, Greater than 96 Consecutive Hours (ICD-10-PCS; 2022-03-12)
PROC: 0BH17EZ Insertion of Endotracheal Airway into Trachea, Via Natural or Artificial Opening (ICD-10-PCS; 2022-03-12)
PROC: 5A1D70Z Performance of Urinary Filtration, Intermittent, Less than 6 Hours Per Day (ICD-10-PCS; 2022-03-13)
PROC: 5A1D70Z Performance of Urinary Filtration, Intermittent, Less than 6 Hours Per Day (ICD-10-PCS; 2022-03-15)
DX: A40.9 Streptococcal sepsis, unspecified (principal); D65 Disseminated intravascular coagulation [defibrination syndrome]; J96.01 Acute respiratory failure with hypoxia; N17.0 Acute kidney failure with tubular necrosis; R65.21 Severe sepsis with septic shock; E44.0 Moderate protein-calorie malnutrition; K56.609 Unspecified intestinal obstruction, unspecified as to partial versus complete obstruction; I96 Gangrene, not elsewhere classified; K56.699 Other intestinal obstruction unspecified as to partial versus complete obstruction; U07.1 COVID-19; G92.8 Other toxic encephalopathy; E87.20 Acidosis, unspecified; E87.1 Hypo-osmolality and hyponatremia; E88.09 Other disorders of plasma-protein metabolism, not elsewhere classified; E87.8 Other disorders of electrolyte and fluid balance, not elsewhere classified; E86.0 Dehydration; E86.1 Hypovolemia; E87.6 Hypokalemia; I12.9 Hypertensive chronic kidney disease with stage 1 through stage 4 chronic kidney disease, or unspecified chronic kidney disease; K31.89 Other diseases of stomach and duodenum; K66.0 Peritoneal adhesions (postprocedural) (postinfection); M62.82 Rhabdomyolysis; N18.9 Chronic kidney disease, unspecified; N20.0 Calculus of kidney; N21.0 Calculus in bladder; D63.1 Anemia in chronic kidney disease; E80.6 Other disorders of bilirubin metabolism; K92.2 Gastrointestinal hemorrhage, unspecified; R18.8 Other ascites; Z82.49 Family history of ischemic heart disease and other diseases of the circulatory system; Z68.23 Body mass index [BMI] 23.0-23.9, adult; Z99.11 Dependence on respirator [ventilator] status; Z78.9 Other specified health status
CPT/HCPCS: 36415; 36573; 36600; 71045; 74018; 74176; 74250; 76700; 76937; 80048; 80053; 80076; 80202; 81003; 82140; 82248; 82375; 82533; 82550; 82607; 82728; 82746; 82805; 82962; 83540; 83550; 83605; 83735; 84100; 84145; 84443; 84478; 85014; 85018; 85025; 85044; 85362; 85379; 85384; 86705; 86709; 86803; 86850; 86900; 86920; 87070; 87075; 87077; 87186; 87340; 87426; 90935; 93005; 94003; 94640; 97116; 97162; 97530; 99291; A6261; C1725; C1752; C1893; C9113; J0690; J0696; J1956; J2060; J2185; J2250; J2270; J2370; J2405; J2543; J2704; J2765; J3010; J3370; J3475; J3480; J3490; J7050; J7060; J7070; P9016; P9034; P9047; Q9963; A4315